=== PATIENT | female | born 2000 | race Caucasian/White ===

== ENCOUNTER 2024-02-16 07:10 | Day surgery (SDC) | payer BC, MEDICAID ==
[~2024-02-16] VITALS: Ht 170.2 cm; Wt 112.0 kg
[~2024-02-16 07:10] MED LIST: LR 1,000 ML IV SCH; Ondansetron 4 MG/2 ML VIAL IV PRN
[2024-02-16 07:50] VITALS: BP 118/84; PULSE 82; TEMP 97.2
--- NOTE | 2024-02-16 07:51 | NUR ---
Pt arrived with self, day [employer] bus [employer]/ in vehicle with 2 children; VSS and WNL, RR even and unlabored; IV placed to RAC and LR hanging; reviewed and signed consents x3, no questions/concerns.
[2024-02-16] MEDS ORDERED: WELLBUTRIN XL300 M1 PO (07:53)
[2024-02-16] MEDS ORDERED: WEGOVY2.4 MG/0.7 SQ (07:54)
[2024-02-16] MEDS ORDERED: PRILOSEC 20MG20 MG PO (07:55)
[2024-02-16] MEDS ORDERED: Lidocaine PF 2% (20 MG/ML) 5 ML VIAL ONE (08:09)
[2024-02-16 09:15] VITALS: BP 113/85; PULSE 95; TEMP 97.6
[2024-02-16 09:30] VITALS: BP 122/86; PULSE 75
--- NOTE | 2024-02-16 09:43 | NUR ---
0905- PATIENT RETURNS TO [facility] V[address] CART. PT AWAKE AND ALERT. RESPIRATIONS UNLABORED. AMBULATED TO RECLINER CHAIR WITH 2:1 SBA. PT DENIES NAUSEA OR ABDOMINAL PAIN. HOOKED UP TO MONITOR AND VS OBTAINED. CALL LIGHT AT SIDE. 0910- PATIENT TOLERATING SPRITE AND CHEESE/CRACKERS WITHOUT NAUSEA OR DIFFICULTY SWALLOWING. 0924- D/C INSTRUCTIONS REVIEWED WITH PATIENT. PT VERBALIZED UNDERSTANDING AND A COPY OF INSTRUCTIONS PROVIDED IN D/C FOLDER. 0930- DR. VICKERS IN ROOM SPEAKING WITH PATIENT. 0934- PATIENT DRESSES SELF. 0943- PATIENT DISCHARGED FROM UNIT VIA W/C TO A PERSONAL VEHICLE. PT LEFT HOSPITAL IN STABLE CONDITION.
== END 2024-02-16 09:43 | disposition home or self-care (01) ==
LOC: SDCO 07:10
DX: K29.50 Unspecified chronic gastritis without bleeding (principal); K31.7 Polyp of stomach and duodenum; K29.30 Chronic superficial gastritis without bleeding; E66.01 Morbid (severe) obesity due to excess calories; Z68.41 Body mass index [BMI] 40.0-44.9, adult
CPT/HCPCS: J2704; J7120